=== PATIENT | female | born 1940 | race Caucasian/White ===

== ENCOUNTER → 2023-09-30 09:57 | Outpatient (REF) | payer MEDICARE, SELFPAY ==
[2023-09-30 10:46] LABS: % Basophils 0.7 % (0-2); % Immature Granulocytes 0.3 % (0-0.5); % Lymphocytes 9.8 % (20.5-51.1); % Monocytes 9.4 % (1.7-9.3); % Neutrophils 75.8 % (42.2-75.2); Absolute Basophils 0.1 10^3/uL (0-0.2); Absolute Eosinophils 0.3 10^3/uL (0-0.7); Absolute Lymphocytes 0.8 10^3/uL (1.2-3.4); Absolute Monocytes 0.8 10^3/uL (0.1-0.6); Absolute Neutrophils 6.5 10^3/uL (1.4-6.5); Hematocrit 40.7 % (37.0-47.0); Hemoglobin 13.5 g/dL (12.0-16.0); Mean Corp Hgb Conc. 33.2 g/dL (33.0-37.0); Mean Corpuscular Hgb 30.1 pg (27.0-31.0); Mean Corpuscular Volume 90.6 fL (81.0-99.0); Mean Platelet Volume 10.3 fL (7.4-10.4); Nucleated Red Blood Cells % 0 %; Platelet Count 331 10^3/uL (130-400); Red Blood Cell Count 4.49 10^6/uL (4.20-5.40); Red Cell Dist. Width 13.6 % (11.5-14.5); White Blood Cell Count 8.6 10^3/uL (4.8-10.8)
[2023-09-30 11:23] LABS: Blood Urea Nitrogen 28 mg/dl (7-17); Calcium 9.6 mg/dl (8.4-10.2); Carbon Dioxide 30 mmol/L (22-30); Chloride 101 mmol/L (98-107); Glucose 106 mg/dl (70-99); Potassium 3.9 mmol/L (3.5-5.1); Sodium 137 mmol/L (135-145)
[2023-09-30 11:30] LABS: Erythrocyte Sed Rate 17 mm/hour (0-20)
== END ==
LOC: REG 09:57
PROVIDERS: ATTENDING PHYSICIAN Orthopaedic Surgery; FAMILY PHYSICIAN Internal Medicine; REFERRING PHYSICIAN Internal Medicine Cardiovascular Disease
DX: M19.012 Primary osteoarthritis, left shoulder (principal)
CPT/HCPCS: 36415; 80048; 85025; 85652; 86140

== ENCOUNTER 2023-12-10 14:49 | Emergency (ER) | payer MEDICARE, SELFPAY ==
[2023-12-10 14:53] VITALS: BP 152/66
--- NOTE | 2023-12-10 16:49 | ED.GENMED ---
History of Present Illness
General
Chief Complaint: Fall
Source: patient and spouse
Exam Limitations: none
Time Seen by Provider: 12/10/23 16:16
Nursing documentation reviewed up to this point in time: agreed with
Travel History
Have you had any contact with someone who has COVID-19?: No
Do you have any symptoms of coronavirus? Fever > 100 degrees, chills, cough, shortness of breath, sore throat, loss of taste or smell, muscle aches, or headache?: No
History of Present Illness
History of Present Illness:
83-year-old female with past medical history of dementia seizure history hypertension hyperlipidemia presenting to the emergency department after tripping going up a step with her spouse fell and hit the left side of her forehead no loss of
consciousness otherwise feels well no additional concerns at this time. This was witnessed unsure of her last tetanus shot.
Past History
Past History
ED Past Medical History: HTN, Hypercholesterolemia, Other (TIA) and Other ('80% left carotid blockage' per )
Social History
Tobacco: Former smoker
Personal:
Living: with family
Review of Systems
Review of Systems
Allergies reviewed?: Yes
All Other Systems: ROS reviewed and negative except as documented in HPI and ROS
Phy Exam
Physical Exam
Physical Exam:
GENERAL: Alert , in no apparent distress
EYE: pupils equal and reactive
NECK: Supple, no significant adenopathy.
ENT: 3 cm laceration to the left lateral forehead subcutaneous in depth no foreign body seen o/p clr, mmm.
CARDIAC: Regular rate and rhythm .
LUNGS: Clear breath sounds bilaterally, no acute respiratory distress, no wheezes/rales/rhonchi
ABDOMEN: Soft, without focal tenderness, no r/g, no cvat
NEUROLOGICAL: Alert and oriented, no focal neuro deficits
SKIN: Warm and dry, skin intact.
MUSCULOSKELETAL: No edema, well perfused.
PSYCH: Normal and appropriate interaction.
Course
Orders/Labs/Results
Orders:
Orders
12/10/23 14:[address] [CT Head W/o Iv Contrast] Urgent
Comment:
Reason For Exam: fall, head injury
12/10/23 16:50
Tetanus/Diphth/Acelpertussis [Adacel] 0.5 ml IM .ONCE ONE
Vital Signs
Initial and Last Documented VS:
Initial Vital Signs
Temp Pulse Resp BP Pulse Ox
98.3 F 72 22 152/66 98
12/10/23 14:53 12/10/23 14:53 12/10/23 14:53 12/10/23 14:53 12/10/23 14:53
Last Documented Vital Signs
Temp Pulse Resp BP Pulse Ox
98.3 F 72 22 152/66 98
12/10/23 14:53 12/10/23 14:53 12/10/23 14:53 12/10/23 14:53 12/10/23 14:53
Procedures
Laceration Closure
Left Forehead:
Status of Wound: clean
Size of Wound in cm: 3
Description of Wound Edges: sharp
Preparation: cleaned with saline
Anesthesia: 1% Lidocaine with epi
Revision/Debridement: routine- no revision
Wound exploration: explored to base- no FB and no tendon involvement
Type of Closure: interrupted sutures
Skin Closure Material: 5-0 chromic gut
Number of sutures: 5
MDM/Problems Addressed
MDM/Problems Addressed:
83-year-old female presenting to the emergency department today after a ground-level fall that was mechanical according to . Patient generally well-appearing no acute distress no focal findings on exam other than laceration to the left
lateral forehead 3 cm in length closed with [address] scan without emergent findings stable for discharge return precautions given. She was given an updated tetanus shot while here.
*Critical Care Note
Total Time (30-74mins, 75-104mins- exclusive of procedures): Not Applicable
ED Attending Note
-
Portions of this chart may have been created with voice recognition software.� Occasional wrong word or��sound alike� substitutions may have occurred due to the inherent limitations of voice recognition software.
Discharge Plan
Departure
Patient Disposition: Home (Routine Discharge)
Date of Disposition: 12/10/23
Time of Disposition: 16:50
Patient with high blood pressure during this ER visit?: No
Condition: Good
Covid-19: Not Applicable
Discharge Problem:
Forehead laceration
Instructions: Laceration Repair With Stitches (DC), Preventing falls in adults
Prescriptions:
No Action
atorvastatin 40 MG tablet
40 mg PO HS
clopidogrel 75 MG tablet
75 mg PO HS
aspirin 81 MG tablet,delayed release (DR/EC)
81 mg PO HS
lidocaine 1 PATCH adhesive patch,medicated
1 patch topical DAILYPRN PRN (Reason: right shoulder pain)
ezetimibe 10 MG tablet
10 mg PO HS
cyclosporine [Restasis] 10 DROPS dropperette
1 drp BOTH EYES DAILYPRN PRN (Reason: dry eye)
coenzyme [id number] E 1 CAP capsule
1 cap PO DAILY
fesoterodine [Toviaz] 4 MG tablet extended release 24 hr
4 mg PO DAILY
metoprolol succinate 100 MG tablet extended release 24 hr
100 mg PO DAILY
fenofibrate nanocrystallized 145 MG tablet
145 mg PO DAILY
multivitamin with folic acid [Tab-A-Noe] 1 TABLET tablet
1 tab PO DAILY
vit C,C-Lx-ngfbn-lutein-zeaxan [PreserVision AREDS-2] 1 EACH capsule
1 ea PO DAILY
levetiracetam 500 MG tablet
500 mg PO BID Qty: 60 0RF
phenazopyridine 100 mg tablet
100 mg PO TID PRN (Reason: pain) Qty: 6 0RF
Referrals:
Carolina Sheppard MD [Family Provider] -
Activity Restrictions/Additional Instructions:
You came to the emergency department today with concerns of laceration to your left forehead. You also had a CT scan that did not show any emergent findings. Laceration was closed with 5 absorbable sutures. Please keep the area clean covered and
follow-up for any concerning features. Return to the emergency department for any worsening, new or concerning symptoms.
Interventions
Interventions:
*Risk Screen - Suicide Last Done: 12/10/23 14:53
*General Assessment Last Done: 12/10/23 14:53
*Neglect/Abuse Screening Last Done: 12/10/23 14:53
Discharge Date and Time
Print Language: ARABIC
[2023-12-10] MEDS: ADACEL 0.5 ML IM (17:15)
[2023-12-10 17:36] VITALS: BP 138/76
== END 2023-12-10 17:42 | disposition home or self-care (01) ==
LOC: EMR 14:49
PROVIDERS: EMERGENCY PHYSICIAN Emergency Medicine; FAMILY PHYSICIAN Internal Medicine
DX: S01.81XA Laceration without foreign body of other part of head, initial encounter (principal); W01.0XXA Fall on same level from slipping, tripping and stumbling without subsequent striking against object, initial encounter; Z23 Encounter for immunization; F03.90 Unspecified dementia, unspecified severity, without behavioral disturbance, psychotic disturbance, mood disturbance, and anxiety; I10 Essential (primary) hypertension; E78.00 Pure hypercholesterolemia, unspecified; Z86.73 Personal history of transient ischemic attack (TIA), and cerebral infarction without residual deficits; Z87.891 Personal history of nicotine dependence
CPT/HCPCS: 99284; 12013; 90471; 70450; 90715

== ENCOUNTER → 2024-01-16 11:03 | Outpatient (REF) | payer MEDICARE, SELFPAY | LOC: RAD 11:03 | PROVIDERS: ATTENDING PHYSICIAN Surgery Vascular Surgery; FAMILY PHYSICIAN Internal Medicine | DX: I65.23 Occlusion and stenosis of bilateral carotid arteries (principal) | CPT/HCPCS: 93880 ==

== ENCOUNTER → 2024-03-05 12:47 | Outpatient (REF) | payer MEDICARE, SELFPAY | LOC: HWWDC 12:47 | PROVIDERS: ATTENDING PHYSICIAN Family Medicine | DX: Z12.31 Encounter for screening mammogram for malignant neoplasm of breast (principal) | CPT/HCPCS: 77063; 77067 ==

== ENCOUNTER → 2024-03-06 09:06 | Outpatient (REF) | payer MEDICARE, SELFPAY ==
[2024-03-06 12:32] LABS: HDL Cholesterol 39 mg/dl; LDL Cholesterol, Calculated 53 mg/dl; Total Cholesterol 106 mg/dl (50-199); Triglyceride 73 mg/dl (10-149); Very Low Density Lipoprotein 14 mg/dl (0-30)
== END ==
LOC: HWLAB 09:06
PROVIDERS: ATTENDING PHYSICIAN Family Medicine; REFERRING PHYSICIAN Internal Medicine Cardiovascular Disease
DX: E78.2 Mixed hyperlipidemia (principal)
CPT/HCPCS: 36415; 80061

== ENCOUNTER → 2024-04-06 11:36 | Outpatient (REF) | payer MEDICARE, SELFPAY | LOC: PAVMRI 11:36 | PROVIDERS: ATTENDING PHYSICIAN Psychiatry & Neurology Neurology; FAMILY PHYSICIAN Family Medicine | DX: G45.9 Transient cerebral ischemic attack, unspecified (principal) | CPT/HCPCS: 70544; 70551 ==

== ENCOUNTER → 2024-05-01 08:57 | Outpatient (REF) | payer MEDICARE, SELFPAY ==
[2024-05-01 12:06] LABS: HDL Cholesterol 39 mg/dl; LDL Cholesterol, Calculated 48 mg/dl; Total Cholesterol 102 mg/dl (50-199); Triglyceride 75 mg/dl (10-149); Very Low Density Lipoprotein 15 mg/dl (0-30)
== END ==
LOC: HWLAB 08:57
PROVIDERS: ATTENDING PHYSICIAN Internal Medicine Cardiovascular Disease; FAMILY PHYSICIAN Family Medicine
DX: E78.2 Mixed hyperlipidemia (principal)
CPT/HCPCS: 36415; 80061

== ENCOUNTER 2024-10-16 14:25 | Inpatient (IN) | payer MEDICARE, SELFPAY ==
[2024-10-16] VITALS (7 sets, daily range): BP systolic 119–180; BP diastolic 62–87
[2024-10-16 11:52] LABS: % Basophils 0.3 % (0-2); % Eosinophils 0.1 % (0-6); % Immature Granulocytes 0.4 % (0-0.5); % Lymphocytes 3.2 % (20.5-51.1); Absolute Immature Granulocytes 0.1 10^3/uL (0-0.05); Absolute Lymphocytes 0.4 10^3/uL (1.2-3.4); Absolute Monocytes 0.7 10^3/uL (0.1-0.6); Absolute Neutrophils 12.5 10^3/uL (1.4-6.5); Hematocrit 42.3 % (37.0-47.0); Hemoglobin 14.3 g/dL (12.0-16.0); Mean Corp Hgb Conc. 33.8 g/dL (33.0-37.0); Mean Corpuscular Hgb 30.2 pg (27.0-31.0); Mean Corpuscular Volume 89.2 fL (81.0-99.0); Mean Platelet Volume 10.6 fL (7.4-10.4); Nucleated Red Blood Cells % 0 %; Platelet Count 257 10^3/uL (130-400); Red Blood Cell Count 4.74 10^6/uL (4.20-5.40); Red Cell Dist. Width 13.2 % (11.5-14.5); White Blood Cell Count 13.8 10^3/uL (4.8-10.8)
[2024-10-16 12:05] LABS: COVID-19 Antigen Negative (Negative)
[2024-10-16 12:10] LABS: ALT (SGPT) 55 U/L (0-35); AST (SGOT) 62 U/L (14-36); Albumin 3.7 g/dl (3.5-5.0); Alkaline Phosphatase 48 U/L (38-126); Blood Urea Nitrogen 32 mg/dl (7-17); Calcium 9.3 mg/dl (8.4-10.2); Carbon Dioxide 31 mmol/L (22-30); Chloride 100 mmol/L (98-107); Glucose 139 mg/dl (70-99); Sodium 140 mmol/L (135-145); Total Bilirubin 0.9 mg/dl (0.2-1.3); Total Protein 6.7 g/dl (6.3-8.2); eGFR > 60.00
--- NOTE | 2024-10-16 13:05 | ED.GENMED ---
History of Present Illness
General
Chief Complaint: Cold/Flu/URI Symptoms
Source: patient
Exam Limitations: none
Time Seen by Provider: 10/16/24 12:59
Nursing documentation reviewed up to this point in time: agreed with
History of Present Illness
History of Present Illness:
84-year-old female with past medical history of hypertension, carotid stenosis, vascular dementia, presents emergency department today with concerns of coughing up sputum and change in mental status. Patient's history is somewhat limited due to her
dementia. reports that patient started slurring her words this morning and was so weak that she could barely walk. called EMS from home. Since arrival to emergency department, her mentation has returned to apparent baseline. She
is now febrile. She denies shortness of breath or chest pain. She denies of belly pain. She has no sore throat and notes some difficulty swallowing at times due to the pain. She does have a hx of carotid stenosis and she does get ultrasounds of
her carotid every few months with Dr. Lynch. She denies any paresthesias in her extremities. Her neurologist is Dr. Mccarty and her counter manager is associated with [place] [facility].
Past History
Past History
ED Past Medical History: HTN, Hypercholesterolemia, Other (TIA) and Other ('80% left carotid blockage' per )
Social History
Tobacco: Former smoker
Personal:
Living: with family
Review of Systems
Review of Systems
All Other Systems: ROS reviewed and negative except as documented in HPI and ROS
Phy Exam
Physical Exam
Physical Exam:
General: Patient is well appearing and in no acute distress; non-toxic
Skin: Dry mucous membranes
Head: Normocephalic, atraumatic
Eyes: Sclera non-icteric. EOMs intact.
Cardiac: Regular rate and rhythm, 2+ systolic murmur
Peripheral Vascular: No lower extremity swelling or edema
Pulm: Increased respiratory rate, diffuse rhonchi heard throughout
Abdomen: No abdominal tenderness to palpation
Neuro: CN II-XII intact, no focal neurologic deficits.
Psychiatric: Appropriate mood and affect.
Course
Orders/Labs/Results
Orders:
Orders
10/16/24 11:40
COVID-19 Antigen Urgent
Source: Nasal Swab
Complete Blood Count/With Diff Urgent
Comprehensive Metabolic Panel Urgent
Influenza A+B Rapid Molecular Urgent
ALEX Source: Nasal Swab
Specimen Description:
10/16/24 12:46
CR Chest - 2 Views Urgent
Comment:
Reason For Exam: cough
10/16/24 13:14
EKG [Electrocardiogram (*1)] Urgent
Reason for Study: Fatigue / Weakness
EKG- Treatment ONCE
10/16/24 13:15
Lactic Acid Urgent
Prothrombin Time Urgent
Urinalysis Reflex To Culture Urgent
Date Specimen was Collected: 10/16/24
Time Specimen was Collected: 13:14
Urine Microscopic Reflex Cult Urgent
Blood Culture Routine
ALEX Source: Blood/Venous
Specimen Description:
Blood Culture Urgent
ALEX Source: Blood/Venous
Specimen Description:
10/16/24 13:16
0.9% Sodium Chloride 500 ml [Nss] 500 ml IV BOLUS
10/16/24 13:20
Acetaminophen 1000MG/100Ml [Ofirmev] 1,000 mg in 100 ml IV ONCE
Acetaminophen IV Indication:: Targeted Temp Management
10/16/24 13:29
Case Management Consult ONCE
Case Management Consult: VN/Home Care
10/16/24 13:47
Azithromycin 500 mg/250 ml [Zithromax Infusion] 500 mg in 250 ml IV NOW
CefTRIAXone [Rocephin] 2,000 mg IV NOW STA
10/16/24 14:14
Admit/Transfer Patient As Directed
Co-Sign Provider:
Level of Care: Inpatient admission
Assign to:: Medical/Surgical
Physician / Group: Htay
Diagnosis: Pneumonia
Reason for Hospitalization: IV abx
Expected length of stay greater than two midnights?: Yes
ELOS- Estimated Length of Stay in days: 3
I certify the patient meets the requirements for IP care: Yes
PRN Pain Medication Management As Directed
May give lesser potent ordered pain med per pt: Yes
preference::
Protocol:: Medication orders for pain may be administered in a
manner that supports deferring to patient preference
when the pt is:
- Requesting an ordered lesser potent pain medication.
Least to most potent pain medications are defined
as: acetaminophen < NSAID < tramadol < opioids
(morphine, oxycodone, hydromorphone).
- Requesting a lesser dose of the same medication IF
ORDERED.
- Requesting a less intrusive route of administration
if both routes are prescribed by the provider (PO <
IV).
10/16/24 14:16
Code Status As Directed
Resuscitation Status: Do not resuscitate
Reached after discussion with pt or family/Healthcare POA: Yes
DNR Bracelet Application ONCE
Abnormal Lab Results
10/16/24 10/16/24
11:40 13:15
WBC 13.8 H 10^3/uL
(4.8-10.8)
MPV 10.6 H fL
(7.4-10.4)
Abs Immat Gran (auto) 0.1 H 10^3/uL
(0-0.05)
Absolute Neuts (auto) 12.5 H 10^3/uL
(1.4-6.5)
Absolute Lymphs (auto) 0.4 L 10^3/uL
(1.2-3.4)
Absolute Monos (auto) 0.7 H 10^3/uL
(0.1-0.6)
Neutrophils % 91.0 H %
(42.2-75.2)
Lymphocytes % 3.2 L %
(20.5-51.1)
PT 15.7 H Sec
(11.4-14.6)
Carbon Dioxide 31 H mmol/L
(22-30)
BUN 32 H mg/dl
(7-17)
Glucose 139 H mg/dl
(70-99)
AST 62 H U/L
(14-36)
ALT 55 H U/L
(0-35)
Urine Bacteria (Reflex) Few A
(Negative)
Urine Albumin (Reflex) 3+ A
(Neg - Trace)
10/16/24 11:40
10/16/24 11:40
Vital Signs
Initial and Last Documented VS:
Initial Vital Signs
Temp Pulse Resp BP Pulse Ox
98.5 F 90 16 133/87 93
10/16/24 11:05 10/16/24 11:05 10/16/24 11:05 10/16/24 11:05 10/16/24 11:05
Last Documented Vital Signs
Temp Pulse Resp BP Pulse Ox
99.2 F 71 22 124/66 92
10/16/24 15:44 10/16/24 15:30 10/16/24 15:30 10/16/24 15:00 10/16/24 13:45
MDM/Problems Addressed
Differential Diagnosis Includes:
ddx include COPD exacerbation, pneumonia, acute bronchitis, strep pharyngitis, viral pharyngitis,
MDM/Problems Addressed:
84-year-old female with past medical history of dementia hypertension hyperlipidemia presents emergency department today with concerns of productive cough, sore throat, and altered mental status. On arrival to emergency department, she is found to
be febrile. She is elevated white count as well. She has diffuse rhonchi heard on exam. She went for chest x-ray which showed possible right-sided pneumonia versus emphysematous changes. In light of patient's symptoms and febrile illness, will
start on IV antibiotics. Case reviewed by attending. Referred to hospitalist for admission. Suspect transient altered mental status in the setting of dementia caused by acute febrile illness.
Chronic conditions affecting care:
COPD, dementia, HTN, HLP,
*Pulse Oximetry
Patient hypoxic: no
*Critical Care Note
Total Time (30-74mins, 75-104mins- exclusive of procedures): Not Applicable
Data Reviewed
Review of Other/Old Records Reveals: Records and Discharge Summary (reviewed discharge summary from 06/06/19 patient seen for CVA from left carotid stenosis )
ED Attending Note
-
Portions of this chart may have been created with voice recognition software.� Occasional wrong word or��sound alike� substitutions may have occurred due to the inherent limitations of voice recognition software.
Discharge Plan
Departure
Patient Disposition: Admit
Date of Disposition: 10/16/24
Time of Disposition: 13:55
Admit to: Med/Surg
Presentation/result/management discussed w/ accepting MD/DO: Hospitalist
Patient with high blood pressure during this ER visit?: Yes
Condition: Fair
Discharge Problem:
Community acquired pneumonia
Interventions
Interventions:
*Risk Screen - Suicide Last Done: 10/16/24 11:07
*General Assessment Last Done: 10/16/24 13:30
*Neglect/Abuse Screening Last Done: 10/16/24 11:07
*ED COVID-19 Vaccine History Last Done: 10/16/24 13:30
ED- Pulmonary Assessment Last Done: 10/16/24 13:30
[2024-10-16] MEDS: NSS 500 IV (13:17)
[2024-10-16 13:41] LABS: Urine Albumin 3+ (Neg - Trace); Urine Bilirubin Negative (Negative); Urine Character Clear (Clear); Urine Color Yellow; Urine Glucose Negative (Negative); Urine Ketone Negative (Negative); Urine Leukocyte Negative (Negative); Urine Nitrite Negative (Negative); Urine Occult Blood Negative (Negative); Urine Urobilinogen 1+ (Neg - 1+)
[2024-10-16] MEDS: OFIRMEV 100 IV (13:41)
[2024-10-16 13:49] LABS: Urine Bacteria Few (Negative); Urine Red Blood Cell 0-2 /HPF (0-2); Urine White Cell 0-2 /HPF (0-5)
--- NOTE | 2024-10-16 13:51 | CM ---
CM was consulted VN. As per ED PA, plan for admission.
--- NOTE | 2024-10-16 13:57 | HPS.HSE ---
Family Physician
-
Family Physician: Edward James DO
Chief Complaint
-
Cough, Weakness and Confusion
History of Present Illness
Patient is an 84 y/o female past medical history of peripheral arterial disease, hypertension, vascular dementia and seizure disorder who presents with cough, weakness and confusion. Additional history is obtained from patient's at the
bedside. This morning patient was very weak and he needed to help her to the bathroom. He notes she was more confused than usual. reports patient has had a cough for the past few days which is occasionally productive of mucus. Upon
arrival to the ED today patient was found to be febrile.
Medical History
Past Medical History
Past Medical History: Reports Other
Additional Past Medical History:
Peripheral Arterial Disease s/p Left Carotid Endarterectomy
Essential Hypertension
Hyperlipidemia
Vascular Dementia
Seizure Disorder
Overactive Bladder
Past Surgical History: Reports Other
Additional Past Surgical History:
Left Carotid Endarterectomy
Bilateral Shoulder Replacement
Bilateral Knee Replacement
Social History
Tobacco: Former Smoker (Patient was an occasional smoker and quit over 20 years ago. notes he was a heavy smoker.)
Personal:
Living: With Family
Family History
Family History: Unable to Obtain
Allergies / Home Medications
Allergies reflects when Allergies were last updated in [facility].
Home Medications with original date entered in [facility]
Allergy/Medication List:
Allergies
Allergy/AdvReac Type Severity Reaction Status Date / Time
Sulfa (Sulfonamide Allergy Rash Verified 12/10/23 14:52
Antibiotics)
Home Medications
aspirin 81 mg tablet,delayed release 81 mg PO HS 03/12/19
atorvastatin 40 mg tablet 40 mg PO HS 03/12/19
ezetimibe 10 mg tablet 10 mg PO HS 03/12/19
fenofibrate nanocrystallized 145 mg tablet 145 mg PO DAILY 03/12/19
fesoterodine 4 mg tablet,extended release 24 hr (Toviaz) 4 mg PO DAILY 03/12/19
metoprolol succinate 100 mg tablet,extended release 24 hr 100 mg PO DAILY 03/12/19
multivitamin with folic acid 400 mcg tablet (Tab-A-Noe) 1 tab PO DAILY 03/12/19
vit C 250 mg-vit E 90 mg-zinc 40 mg-copper 1 io-uebout-kegfym capsule (PreserVision AREDS-2) 1 ea PO QPM 03/12/19
coQ10 (ubiquinol) 100 mg capsule 100 mg PO QPM 10/16/24
lacosamide 150 mg tablet (Vimpat) 150 mg PO BID 10/16/24
memantine 10 mg tablet 10 mg PO BID 10/16/24
peg 400-propylene glycol (PF) 0.4 %-0.3 % eye drops in a dropperette (Systane (PF)) 1 drp BOTH EYES BIDPRN PRN DRY EYES 10/16/24
Review of Systems
-
Unable to obtain full review of systems at this time due to: Dementia
Physical Exam
Vital Signs
Vital Signs
Temp Pulse Resp BP Pulse Ox
101.2 F H 91 23 180/70 94
10/16/24 13:12 10/16/24 13:15 10/16/24 13:15 10/16/24 13:10 10/16/24 13:15
Physical Exam
General: Comfortable and Conversant
HEENT: NormoCephalic, Anicteric, Atraumatic and Other
Respiratory: Wheezes, Rales and Non Labored Respirations
Cardiac: S1/S2, Regular Rhythm and Murmur; No Tachycardia
GI: Soft and Non Tender
Rectal: Deferred by Provider
Musculoskeletal: No Clubbing, No Cyanosis and No Edema
Skin: Warm and Dry
Neuro: Awake, Alert and No Motor Deficits
Psych: Calm
Laboratory Results
-
10/16/24 11:40
10/16/24 11:40
Laboratory Results
Total Bilirubin 0.9 mg/dl (0.2-1.3) 10/16/24 11:40
AST 62 U/L (14-36) H 10/16/24 11:40
ALT 55 U/L (0-35) H 10/16/24 11:40
Alkaline Phosphatase 48 U/L (38-126) 10/16/24 11:40
Data Reviewed
-
Diagnostic Radiology: Report Reviewed by me
Lab Data: Labs Reviewed by me
Impression/Plan
-
Sepsis secondary to Pneumonia
-Continue ceftriaxone and azithromycin
-Continue Mucinex
-Add DuoNeb given wheezing on exam
Peripheral Arterial Disease s/p Left Carotid Endarterectomy
-Continue aspirin
Essential Hypertension
-Continue Metoprolol with hold parameters
Hyperlipidemia
-Continue atorvastatin, ezetimibe, and fenofibrate
Vascular Dementia
-Continue Namenda
-Monitor for mood/behavior changes during hospitalization
Seizure Disorder
-Continue Vimpat
DVT proph: Lovenox
Code Status: DNR
[2024-10-16 14:24] LABS: Lactic Acid 1.3 mmol/L (0.7-2.0)
[2024-10-16] MEDS: ROCEPHIN 2000 MG IV (14:32)
--- NOTE | 2024-10-16 14:46 | W.PN.UPDATE ---
Update Note
Progress Note Update
This note serves as an addendum to the H&P by serologist ANDREEA
Narcisa MCINTOSH
I saw and examined the patient.
The CLAY TRANSPORTER or PA's note was reviewed and I agree with the note.
Comment:
HPI
84F HX vascular dementia, PAD, HTN and seizure disorder evaluating for cough, weakness and confusion. Upon arrival to the ED today patient was found to be febrile.
VS
10/16/24
13:12 10/16/24
13:15 10/16/24
13:30
Temp 101.2 F H
Pulse 91
Resp Rate 23
SaO2 94
Oxygen Mode of Delivery Room air
Laboratory Tests
10/16/24
11:40
WBC 13.8 H
Carbon Dioxide 31 H
BUN 32 H
Creatinine 0.7
eGFR > 60.00
SARS-CoV-2 Antigen Negative
CXR:
There is patchy airspace disease in the right upper lobe which is new from 2019 but has a pattern suggesting chronic emphysematous changes. Pneumonia cannot be excluded.
Small nodules could be granulomas, however follow-up with CT of the chest would be recommended
ASSESSMENT & PLAN
Sepsis due to PNA @ [facility]
- agree with ceftriaxone and azithromycin
- Continue Mucinex
- Add DuoNeb given wheezing on exam
Peripheral Arterial Disease s/p Left Carotid Endarterectomy
- Continue aspirin
Essential Hypertension
- Continue Metoprolol with hold parameters
Hyperlipidemia
- Continue atorvastatin, ezetimibe, and fenofibrate
Vascular Dementia
- Continue Namenda
- Monitor for mood/behavior changes during hospitalization
Seizure Disorder
-Continue Vimpat
DVT proph: Lovenox
Code: DNR
IP MS
[2024-10-16 15:05] LABS: INR 1.22; PT 15.7 Sec (11.4-14.6)
[2024-10-16] MEDS: ZITHROMAX INFUSION 250 IV (15:32)
[2024-10-16] MEDS: DUONEB INH (17:17)
[2024-10-16] MEDS: OCUVITE SOFTGEL 1 CAP PO (17:45)
[2024-10-16] MEDS: LOVENOX 40 MG SC (17:45)
--- NOTE | 2024-10-16 18:11 | PTOTSP ---
ST Acute Care Evaluation
Pt currently presents with an oropharyngeal swallow that is generally within functional limits. Pt would benefit from a brief follow-up from COURT RECORDING MONITOR team to ensure this remains the case given the pt's age, medical hx, and acute illness.
Recommendations:
- Continue with regular solids, thin liquids, meds as tolerated.
- General aspiration precautions; denture adhesive for upper dentures.
- COURT RECORDING MONITOR to f/u re: to ensure pt is tolerating diet without any overt s/s of penetration/aspiration at bedside and to determine if pt would benefit from an instrumental swallow study.
[2024-10-16] MEDS: DUONEB 3 ML INH (19:30)
[2024-10-16] MEDS: VIMPAT 150 MG PO (19:52)
[2024-10-16] MEDS: MUCINEX 600 MG PO (19:52)
[2024-10-16] MEDS: NAMENDA 10 MG PO (19:52)
[2024-10-16] MEDS: ZETIA 10 MG PO (21:07)
[2024-10-16] MEDS: LIPITOR 40 MG PO (21:07)
[2024-10-16] MEDS: ASPIR LOW (ENTERIC COATED) 81 MG PO (21:07)
[2024-10-16] MEDS: TYLENOL 650 MG PO (22:47)
[2024-10-17 05:21] VITALS: BMI 23.7
[2024-10-17 07:23] VITALS: BP 130/71
[2024-10-17] MEDS: TOPROL XL 100 MG PO (07:51)
[2024-10-17] MEDS: VIMPAT 150 MG PO ×2 (07:51→19:32)
[2024-10-17] MEDS: TRICOR 48 MG PO (07:51)
[2024-10-17] MEDS: NAMENDA 10 MG PO ×2 (07:51→19:32)
[2024-10-17] MEDS: MUCINEX 600 MG PO ×2 (07:51→19:32)
[2024-10-17] MEDS: TYLENOL 650 MG PO (07:52)
[2024-10-17] MEDS: DUONEB 3 ML INH ×4 (08:10→20:15)
[2024-10-17 08:49] LABS: Hematocrit 36.1 % (37.0-47.0); Hemoglobin 12.2 g/dL (12.0-16.0); Mean Corp Hgb Conc. 33.8 g/dL (33.0-37.0); Mean Corpuscular Hgb 29.6 pg (27.0-31.0); Mean Corpuscular Volume 87.6 fL (81.0-99.0); Mean Platelet Volume 10.6 fL (7.4-10.4); Platelet Count 210 10^3/uL (130-400); Red Blood Cell Count 4.12 10^6/uL (4.20-5.40); Red Cell Dist. Width 13.5 % (11.5-14.5); White Blood Cell Count 14.1 10^3/uL (4.8-10.8)
[2024-10-17 09:09] LABS: Blood Urea Nitrogen 29 mg/dl (7-17); Calcium 8.6 mg/dl (8.4-10.2); Carbon Dioxide 28 mmol/L (22-30); Chloride 99 mmol/L (98-107); Estimated Creatinine Clearance 42 ml/min; Glucose 106 mg/dl (70-99); Potassium 3.3 mmol/L (3.5-5.1); Sodium 138 mmol/L (135-145); eGFR > 60.00
[2024-10-17 09:20] VITALS: BP 136/73; O2SAT 93
--- NOTE | 2024-10-17 09:34 | W.PN.HOSP.TC ---
Today's Communication/Plan
-
Urine for Legionella and streptococcal pneumonia
Replace K
Assessment / Plan
Assessment / Plan
Physical Exam
General: Comfortable and Conversant
HEENT: Normocephalic, Anicteric, Atraumatic and Other
Respiratory: no Wheezes, basal rales, non Labored Respirations
Cardiac: S1/S2, Regular Rhythm and Murmur; No Tachycardia
GI: Soft and Non Tender
Rectal: no rectal bleeding.
Musculoskeletal: No Clubbing, No Cyanosis and No Edema
Skin: Warm and Dry
Neuro: Awake, Alert, oriented to self and surroundings, forgetful, no Motor Deficits
Psych: Calm
# She presented with tachycardia, fever and leukocytosis, patient is not very good historian
She met the criteria of sepsis, POA for possible community-acquired pneumonia
Negative influenza and COVID screen.
Await blood culture
Check urine for Legionella
-Continue ceftriaxone and azithromycin
-Continue Mucinex
-Add DuoNeb given wheezing on exam
# hypokalemia
replace
# Peripheral Arterial Disease s/p Left Carotid Endarterectomy
-Continue aspirin
# Essential Hypertension
-Continue Metoprolol with hold parameters
# Hyperlipidemia
-Continue atorvastatin, ezetimibe, and fenofibrate
# Vascular Dementia
-Continue Namenda
-Monitor for mood/behavior changes during hospitalization
# Seizure Disorder
-Continue Vimpat
DVT proph: Lovenox
Code Status: DNR
Total time spent to see the patient, examine the patient, review data and lab results, discuss treatment plan with patient and nursing staff around 55 minutes
Anticipated Discharge: 24 - 48 hours
Subjective/Interval History
-
Date of Service: October 17, 2024
Objective Data
-
Labs:
Laboratory Results
10/17/24
08:05
WBC 14.1 H
Hgb 12.2
Hct 36.1 L
Plt Count 210
Sodium 138
Potassium 3.3 L
Chloride 99
Carbon Dioxide 28
BUN 29 H
Creatinine 0.8
Glucose 106 H
Calcium 8.6
Vital Signs:
Vital Signs
Temp Pulse Resp BP Pulse Ox
99.0 F 84 20 130/71 93
10/17/24 07:23 10/17/24 07:51 10/17/24 07:23 10/17/24 07:51 10/17/24 07:23
I&O
10/16/24 10/17/24 10/18/24
06:59 06:59 06:59
Intake Total 600 / 600
Balance 600 / 600
[2024-10-17 10:04] VITALS: BP 136/57; PULSE 74; O2SAT 93
[2024-10-17] MEDS: KCL 20 MEQ PO (10:22)
[2024-10-17 15:38] VITALS: BP 138/70
[2024-10-17] MEDS: NON-FORMULARY ITEM 1 UNIT PO (15:52)
[2024-10-17] MEDS: ZITHROMAX 500 MG PO (15:53)
--- NOTE | 2024-10-17 16:17 | CM ---
general operations manager reviewed patient's chart and met with patient and spouse at bedside, patient lives with her spouse in a 1st floor of one story home, patient is independent with adl's and ambulation, no dme, plan is to home with VN, case packer spoke
with [employer] about options and patient has selected [facility], [facility] liaison is aware.
Plan; Home with spouse and [facility].
[2024-10-17] MEDS: ROCEPHIN 1000 MG IV (17:07)
[2024-10-17] MEDS: STERILE WATER FOR INJECTION 10 ML IV (17:08)
[2024-10-17] MEDS: OCUVITE SOFTGEL 1 CAP PO (18:17)
[2024-10-17] MEDS: LOVENOX 40 MG SC (18:17)
[2024-10-17] MEDS: ZETIA 10 MG PO (20:35)
[2024-10-17] MEDS: LIPITOR 40 MG PO (20:35)
[2024-10-17] MEDS: ASPIR LOW (ENTERIC COATED) 81 MG PO (20:35)
--- NOTE | 2024-10-17 21:45 | PTCARENOTE ---
Patient made multiple attempts to get OOB and no longer at bedside. Hx dementia at baseline [employer]. Attempted to call to calm patient, patient unable to redirect at this time. spoke with RN and stated patient needs something
to be 'sedated'. MARKETING ASSOCIATE notified, order placed for 25mg PO seroquel, see MAR for administration. Placed in nursing station for safety with chair alarm in place. Care ongoing.
[2024-10-17] MEDS: SEROQUEL 25 MG PO (21:50)
[2024-10-17 23:11] VITALS: BP 145/80
[2024-10-18 05:26] VITALS: BMI 24.4
[2024-10-18 07:20] VITALS: BP 139/59
[2024-10-18] MEDS: DUONEB 3 ML INH ×2 (07:33→11:24)
[2024-10-18] MEDS: MUCINEX 600 MG PO (07:56)
[2024-10-18] MEDS: VIMPAT 150 MG PO (07:56)
[2024-10-18] MEDS: TOPROL XL 100 MG PO (07:56)
[2024-10-18] MEDS: TRICOR 48 MG PO (07:56)
[2024-10-18] MEDS: NAMENDA 10 MG PO (07:56)
[2024-10-18] MEDS: NON-FORMULARY ITEM 1 UNIT PO (07:59)
[2024-10-18 08:06] LABS: Hematocrit 33.4 % (37.0-47.0); Hemoglobin 11.5 g/dL (12.0-16.0); Mean Corp Hgb Conc. 34.4 g/dL (33.0-37.0); Mean Corpuscular Hgb 29.6 pg (27.0-31.0); Mean Corpuscular Volume 85.9 fL (81.0-99.0); Mean Platelet Volume 10.5 fL (7.4-10.4); Platelet Count 191 10^3/uL (130-400); Red Blood Cell Count 3.89 10^6/uL (4.20-5.40); Red Cell Dist. Width 13.4 % (11.5-14.5)
[2024-10-18 08:56] LABS: ALT (SGPT) 48 U/L (0-35); AST (SGOT) 60 U/L (14-36); Albumin 2.8 g/dl (3.5-5.0); Alkaline Phosphatase 49 U/L (38-126); Blood Urea Nitrogen 26 mg/dl (7-17); Calcium 8.7 mg/dl (8.4-10.2); Carbon Dioxide 27 mmol/L (22-30); Chloride 101 mmol/L (98-107); Estimated Creatinine Clearance 42 ml/min; Glucose 87 mg/dl (70-99); Potassium 3.3 mmol/L (3.5-5.1); Sodium 135 mmol/L (135-145); Total Bilirubin 0.6 mg/dl (0.2-1.3); Total Protein 5.4 g/dl (6.3-8.2); eGFR > 60.00
--- NOTE | 2024-10-18 09:20 | VNURNOTE ---
Home Health Liaison spoke with patient's spouse Ed to discuss [facility] nurse/therapy, visits, schedule and homebound status. He is agreeable and understands that visits at home will be 2-3 x per week to assess and teach medical management. He would
also like [facility] and [facility] mendoza, will add to referral. [facility] contact information provided to spouse. He is aware that [facility] will contact him for start of care within a few days after discharge from . [facility] referral completed in [facility].
[2024-10-18 10:07] VITALS: BP 137/89; O2SAT 97
--- NOTE | 2024-10-18 10:17 | PN.CDI ---
Addendum entered and electronically signed by Karen Acevedo MD 10/18/24 11:35:
Call me at [phone] to discuss
Original Note:
CDI
- -
CDI:
Physician Documentation Request
Admit Date: 10/16/24 14:25
Dear Doctor Curtis,
Please review the following and provide your response in the progress notes.
Clinical Indicators:
PN, 3/
#....Urine for Legionella and streptococcal pneumonia
#...presented with tachycardia, fever and leukocytosis, ...
#...met the criteria of sepsis, POA for possible community-acquired pneumonia
#...-Continue ceftriaxone and azithromycin
Based on the above and your clinical assessment, please clarify the likely specificity/etiology of the pneumonia?
Legionella pneumonia
Streptococcal Pneumonia - indicate if strep B, strep pneumoniae or other type
Other (please specify)
Use of terms such as suspected, likely, concern for, or probable (associated with a specific diagnosis that is being evaluated, monitored, or treated as if it exists) are acceptable and can be coded in the inpatient setting, when documented at the
time of discharge.
Thank you,
Jaimee Almanza RN BSN CCDS
CDI Specialist
please contact via tiger text
Please use your independent medical judgment in providing your response.
--- NOTE | 2024-10-18 11:06 | CM ---
Chart reviewed and plan is to home with [facility] when stable.
Plan; Home with [facility]
--- NOTE | 2024-10-18 11:27 | W.PN.HOSP.TC ---
Today's Communication/Plan
-
dc
Assessment / Plan
Assessment / Plan
Physical Exam
General: Comfortable and Conversant
HEENT: Normocephalic, Anicteric, Atraumatic and Other
Respiratory: no Wheezes, basal rales, non Labored Respirations
Cardiac: S1/S2, Regular Rhythm and Murmur; No Tachycardia
GI: Soft and Non Tender
Rectal: no rectal bleeding.
Musculoskeletal: No Clubbing, No Cyanosis and No Edema
Skin: Warm and Dry
Neuro: Awake, Alert, oriented to self and surroundings, forgetful, no Motor Deficits
Psych: Calm
# She presented with tachycardia, fever and leukocytosis, patient is not very good historian
She met the criteria of sepsis, POA for possible community-acquired pneumonia
Negative influenza and COVID screen.
Negative blood culture
Repeat chest x ray showed Mild opacification in the lateral mid right lung field concerning for pneumonia
Negative Legionella & Streptococcus pneumoniae
-s/p ceftriaxone and azithromycin
-Continue Mucinex
# hypokalemia
replaced
# Peripheral Arterial Disease s/p Left Carotid Endarterectomy
-Continue aspirin
# Essential Hypertension
-Continue Metoprolol with hold parameters
# Hyperlipidemia
-Continue atorvastatin, ezetimibe, and fenofibrate
# Vascular Dementia
-Continue Namenda
-Monitor for mood/behavior changes during hospitalization
# Seizure Disorder
-Continue Vimpat
DVT proph: Lovenox
Code Status: DNR
Total dc time spent to see the patient, examine the patient, review data and lab results, discuss discharge plan with patient and nursing staff around 65 minutes
Anticipated Discharge: Today
Subjective/Interval History
-
Date of Service: October 18, 2024
Doing well
No sob
No chest pain
Objective Data
-
Labs:
Laboratory Results
10/18/24
07:30
WBC 8.0
Hgb 11.5 L
Hct 33.4 L
Plt Count 191
Sodium 135
Potassium 3.3 L
Chloride 101
Carbon Dioxide 27
BUN 26 H
Creatinine 0.8
Glucose 87
Calcium 8.7
Total Bilirubin 0.6
AST 60 H
ALT 48 H
Alkaline Phosphatase 49
Vital Signs:
Vital Signs
Temp Pulse Resp BP Pulse Ox
97.8 F 70 16 139/59 93
10/18/24 07:20 10/18/24 07:56 10/18/24 07:36 10/18/24 07:56 10/18/24 07:36
I&O
10/17/24 10/18/24 10/19/24
06:59 06:59 06:59
Intake Total 600 / 600 680 / 680
Balance 600 / 600 680 / 680
[2024-10-18 11:45] LABS: Glucose - Point of Care 103 mg/dl (70-99)
[2024-10-18] MEDS: KCL 40 MEQ PO (12:14)
[2024-10-18] MEDS: ROCEPHIN 1000 MG IV (12:16)
[2024-10-18] MEDS: STERILE WATER FOR INJECTION 10 ML IV (12:17)
[2024-10-18 12:39] VITALS: BP 116/66
--- NOTE | 2024-10-18 13:00 | PTCARENOTE ---
patient was discharged at this time. home medication (toviaz) was returned to family
--- NOTE | 2024-10-19 14:26 | W.DCSUMMARY ---
Discharge Summary
Discharge Data
Date of Admission: 10/16/24
Date of Discharge: 10/18/24
-
Pending Results: No
Hospital Course
84 years old female presented with cough, weakness and confusion. reported patient had a cough for the past few days. Upon arrival to the ED today patient was found to have fever, tachycardia and leukocytosis. Patient met the criteria of
sepsis, mild. She was diagnosed with community-acquired pneumonia. She had negative blood culture. Negative influenza, COVID, Legionella and Streptococcus pneumoniae antigen. patient received intravenous antibiotics. Leukocytosis resolved. She
did not have cough or hypoxia. Patient had mild hypokalemia was treated. Patient had history of vascular dementia. She did not have significant agitation. She remained hemodynamically stable was discharged in a stable condition.
Discharge Plan
-
Patient Disposition: Home with Home Care
Discharge Diagnosis/Procedures: Community-acquired pneumonia, you received antibiotics
Negative blood culture, negative Legionella and Streptococcus pneumoniae antigens
Negative COVID and influenza
You will need to follow-up with your primary care doctor to repeat chest x-ray in 2-3 weeks
Condition: Good
Diet: As tolerated
Referrals:
Edward James DO [Family Provider] -
Prescriptions:
New
amoxicillin-pot clavulanate 875-125 mg tablet
1 tab PO BID Qty: 10 0RF
Continued
atorvastatin 40 MG tablet
40 mg PO HS
aspirin 81 MG tablet,delayed release (DR/EC)
81 mg PO HS
ezetimibe 10 MG tablet
10 mg PO HS
fesoterodine [Toviaz] 4 MG tablet extended release 24 hr
4 mg PO DAILY
metoprolol succinate 100 MG tablet extended release 24 hr
100 mg PO DAILY
fenofibrate nanocrystallized 145 MG tablet
145 mg PO DAILY
multivitamin with folic acid [Tab-A-Noe] 1 TABLET tablet
1 tab PO DAILY
PreserVision AREDS-2 1 EACH capsule
1 ea PO QPM
memantine 10 mg Tablet
10 mg PO BID
Systane (PF) 0.4-0.3 % Dropperette
1 drp BOTH EYES BIDPRN PRN (Reason: DRY EYES)
lacosamide [Vimpat] 150 mg Tablet
150 mg PO BID
coQ10 (ubiquinol) 100 mg Capsule
100 mg PO QPM
Discharge Orders:
Discharge Patient (As Directed); Ordered 10/18/24
Ordered By: Karen Acevedo
Discharge Date and Time
Discharge Date/Time: 10/18/24 12:50
Print Language: MOHAWK
== END 2024-10-18 12:50 | disposition home health service (06) | DRG 871 ==
LOC: 4 WEST ACU 14:25
PROVIDERS: Emergency Medicine; Physician Assistant; Physician Assistant Medical; ADMITTING PHYSICIAN Internal Medicine; ATTENDING PHYSICIAN Internal Medicine; EMERGENCY PHYSICIAN Emergency Medicine; FAMILY PHYSICIAN Family Medicine
DX: A41.9 Sepsis, unspecified organism (principal); J18.9 Pneumonia, unspecified organism; E87.6 Hypokalemia; I73.9 Peripheral vascular disease, unspecified; I10 Essential (primary) hypertension; E78.00 Pure hypercholesterolemia, unspecified; F01.50 Vascular dementia, unspecified severity, without behavioral disturbance, psychotic disturbance, mood disturbance, and anxiety; G40.909 Epilepsy, unspecified, not intractable, without status epilepticus; Z66 Do not resuscitate; Z96.611 Presence of right artificial shoulder joint; Z96.612 Presence of left artificial shoulder joint; Z96.653 Presence of artificial knee joint, bilateral; Z87.891 Personal history of nicotine dependence; Z88.2 Allergy status to sulfonamides; Z79.82 Long term (current) use of aspirin; Z86.73 Personal history of transient ischemic attack (TIA), and cerebral infarction without residual deficits; N32.81 Overactive bladder; Z11.52 Encounter for screening for COVID-19
CPT/HCPCS: 71046; 80048; 80053; 81003; 81015; 82962; 83605; 85025; 85027; 85610; 87040; 87449; 87502; 87811; 87899; 92526; 92610; 93005; 94640; 96361; 96374; 97162; 97166; 97530; 99285

== ENCOUNTER → 2024-10-26 09:10 | Outpatient (REF) | payer MEDICARE, SELFPAY ==
[2024-10-26 13:02] LABS: % Basophils 0.8 % (0-2); % Eosinophils 1.9 % (0-6); % Immature Granulocytes 1.2 % (0-0.5); % Lymphocytes 15.2 % (20.5-51.1); % Monocytes 10.1 % (1.7-9.3); % Neutrophils 70.8 % (42.2-75.2); Absolute Basophils 0.1 10^3/uL (0-0.2); Absolute Eosinophils 0.1 10^3/uL (0-0.7); Absolute Immature Granulocytes 0.1 10^3/uL (0-0.05); Absolute Lymphocytes 1.1 10^3/uL (1.2-3.4); Absolute Monocytes 0.8 10^3/uL (0.1-0.6); Absolute Neutrophils 5.3 10^3/uL (1.4-6.5); Hematocrit 41.2 % (37.0-47.0); Hemoglobin 13.6 g/dL (12.0-16.0); Mean Corpuscular Volume 90.9 fL (81.0-99.0); Mean Platelet Volume 10.7 fL (7.4-10.4); Nucleated Red Blood Cells % 0 %; Platelet Count 451 10^3/uL (130-400); Red Blood Cell Count 4.53 10^6/uL (4.20-5.40); White Blood Cell Count 7.4 10^3/uL (4.8-10.8)
[2024-10-26 13:20] LABS: Urine Albumin 2+ (Neg - Trace); Urine Bilirubin Negative (Negative); Urine Character Clear (Clear); Urine Color Yellow; Urine Glucose Negative (Negative); Urine Ketone Negative (Negative); Urine Leukocyte Negative (Negative); Urine Nitrite Negative (Negative); Urine Occult Blood Negative (Negative); Urine Specific Gravity 1.015 (<1.030); Urine Urobilinogen Negative (Neg - 1+)
[2024-10-26 13:30] LABS: Glycohemoglobin (HgbA1c) 5.7 % (4.0-5.6)
[2024-10-26 13:31] LABS: ALT (SGPT) 32 U/L (0-35); AST (SGOT) 27 U/L (14-36); Albumin 3.5 g/dl (3.5-5.0); Alkaline Phosphatase 49 U/L (38-126); Blood Urea Nitrogen 30 mg/dl (7-17); Calcium 9.7 mg/dl (8.4-10.2); Carbon Dioxide 31 mmol/L (22-30); Chloride 102 mmol/L (98-107); Glucose 94 mg/dl (70-99); HDL Cholesterol 28 mg/dl; LDL Cholesterol, Calculated 41 mg/dl; Magnesium 1.8 mg/dl (1.6-2.3); Potassium 4.8 mmol/L (3.5-5.1); Sodium 139 mmol/L (135-145); Total Bilirubin 0.8 mg/dl (0.2-1.3); Total Cholesterol 94 mg/dl (50-199); Total Protein 6.4 g/dl (6.3-8.2); Triglyceride 126 mg/dl (10-149); Very Low Density Lipoprotein 25 mg/dl (0-30); eGFR > 60.00
[2024-10-26 13:51] LABS: TSH Reflex To Free T4 3.63 uIU/ml (0.47-4.68)
[2024-10-26 14:16] LABS: Urine Mucus Few
[2024-10-26 14:18] LABS: Urine Amorphous Seen; Urine Red Blood Cell 0-2 /HPF (0-2); Urine White Cell 0-2 /HPF (0-5)
[2024-10-26 14:32] LABS: Microalbumin, Random Urine 12.4 mg/dl (0.6-1.7); Microalbumin/creatinine Ratio 132.1 mg/g
== END ==
LOC: HWLAB 09:10
PROVIDERS: ATTENDING PHYSICIAN Internal Medicine Cardiovascular Disease; FAMILY PHYSICIAN Family Medicine
DX: R41.89 Other symptoms and signs involving cognitive functions and awareness (principal); E78.2 Mixed hyperlipidemia; I10 Essential (primary) hypertension; E78.5 Hyperlipidemia, unspecified
CPT/HCPCS: 36415; 80053; 80061; 81003; 81015; 82043; 82570; 83036; 83735; 84443; 85025

== ENCOUNTER 2024-11-02 12:45 | Emergency (ER) | payer MEDICARE, SELFPAY ==
[2024-11-02 12:52] VITALS: BP 116/65
[2024-11-02 13:44] VITALS: BP 109/68
--- NOTE | 2024-11-02 13:52 | ED.GENMED ---
History of Present Illness
General
Chief Complaint: Head Injury
Time Seen by Provider: 11/02/24 13:10
History of Present Illness
History of Present Illness:
84-year-old female presents the emergency department after a mechanical fall. She tripped over a parking stop and landed on the ground face first. was present and there was no loss of consciousness. Mild abrasion to the right forehead as
well as an abrasion to the nasal bridge. She is not on blood thinners. She feels well and denies complaints
Past History
Past History
ED Past Medical History: HTN, Hypercholesterolemia, Other (TIA) and Other ('80% left carotid blockage' per )
Social History
Tobacco: Former smoker
Personal:
Living: with family
Review of Systems
Review of Systems
Allergies reviewed?: Yes
All Other Systems: ROS reviewed and negative except as documented in HPI and ROS
Phy Exam
Physical Exam
Physical Exam:
GEN: Well appearing, NAD, WDWN
HEENT: Mild abrasion to the right forehead, superficial laceration to the midline nasal bridge, no ecchymosis, oral mucosa moist, no scleral icterus, no nasal congestion
Cardiac: Regular rate
Lung: No respiratory distress, no tachypnea
MSK: No gross deformity or injuries
Skin: Good color, no pallor or jaundice, no rashes
Neuro: AO x3; CN II-XII grossly intact. BUE strength 5/5 in all caldera, sensation intact and symmetric. BLE strength 5/5 in all caldera, sensation intact and symmetric
Psych: Calm, cooperative
Course
Orders/Labs/Results
Orders:
Orders
11/02/24 13:16
CT Head W/o Iv Contrast Urgent
Comment:
Reason For Exam: fall
Vital Signs
Initial and Last Documented VS:
Initial Vital Signs
Temp Pulse Resp BP Pulse Ox
98.2 F 75 16 116/65 98
03/21/25 12:52 11/02/24 12:52 11/02/24 12:52 11/02/24 12:52 11/02/24 12:52
Last Documented Vital Signs
Temp Pulse Resp BP Pulse Ox
98.2 F 71 16 109/68 100
11/02/24 12:52 11/02/24 13:44 11/02/24 13:44 11/02/24 13:44 11/02/24 13:44
MDM/Problems Addressed
MDM/Problems Addressed:
Imaging unremarkable, neurologically at baseline. Wounds will not require primary closure
*Critical Care Note
Total Time (30-74mins, 75-104mins- exclusive of procedures): Not Applicable
ED Attending Note
-
Portions of this chart may have been created with voice recognition software.� Occasional wrong word or��sound alike� substitutions may have occurred due to the inherent limitations of voice recognition software.
Discharge Plan
Departure
Patient Disposition: Home (Routine Discharge)
Date of Disposition: 11/02/24
Time of Disposition: 13:53
Patient with high blood pressure during this ER visit?: No
Discharge Problem:
Fall, Laceration of nose
Instructions: Minor Head Injury (DC)
Prescriptions:
No Action
atorvastatin 40 MG tablet
40 mg PO HS
aspirin 81 MG tablet,delayed release (DR/EC)
81 mg PO HS
ezetimibe 10 MG tablet
10 mg PO HS
fesoterodine [Toviaz] 4 MG tablet extended release 24 hr
4 mg PO DAILY
metoprolol succinate 100 MG tablet extended release 24 hr
100 mg PO DAILY
fenofibrate nanocrystallized 145 MG tablet
145 mg PO DAILY
multivitamin with folic acid [Tab-A-Noe] 1 TABLET tablet
1 tab PO DAILY
PreserVision AREDS-2 1 EACH capsule
1 ea PO QPM
memantine 10 mg Tablet
10 mg PO BID
Systane (PF) 0.4-0.3 % Dropperette
1 drp BOTH EYES BIDPRN PRN (Reason: DRY EYES)
lacosamide [Vimpat] 150 mg Tablet
150 mg PO BID
coQ10 (ubiquinol) 100 mg Capsule
100 mg PO QPM
amoxicillin-pot clavulanate 875-125 mg tablet
1 tab PO BID Qty: 10 0RF
Interventions
Interventions:
*Risk Screen - Suicide Last Done: 11/02/24 12:52
*General Assessment Last Done: 11/02/24 13:23
*Neglect/Abuse Screening Last Done: 11/02/24 12:52
*ED- Fall Risk Assessment Last Done: 11/02/24 13:23
*Nursing Disposition Last Done: 11/02/24 13:58
ED- Neurological Assessment Last Done: 11/02/24 13:23
ED-Skin Assessment Last Done: 11/02/24 13:23
Discharge Date and Time
Discharge Date/Time: 11/02/24 13:58
Print Language: SLOVAK
== END 2024-11-02 13:58 | disposition home or self-care (01) ==
LOC: EMR 12:45
PROVIDERS: EMERGENCY PHYSICIAN Student in an Organized Health Care Education/Training Program; FAMILY PHYSICIAN Family Medicine
DX: S01.21XA Laceration without foreign body of nose, initial encounter (principal); W01.0XXA Fall on same level from slipping, tripping and stumbling without subsequent striking against object, initial encounter; I10 Essential (primary) hypertension; E78.00 Pure hypercholesterolemia, unspecified; Z86.73 Personal history of transient ischemic attack (TIA), and cerebral infarction without residual deficits; Z87.891 Personal history of nicotine dependence
CPT/HCPCS: 99284; 70450

== ENCOUNTER → 2024-11-13 10:40 | Outpatient (REF) | payer MEDICARE, SELFPAY | LOC: HWRAD 10:40 | PROVIDERS: ATTENDING PHYSICIAN Family Medicine | DX: Z87.01 Personal history of pneumonia (recurrent) (principal); Z09 Encounter for follow-up examination after completed treatment for conditions other than malignant neoplasm | CPT/HCPCS: 71046 ==

== ENCOUNTER → 2024-11-26 09:32 | Outpatient (REF) | payer MEDICARE, SELFPAY ==
[2024-11-26 11:38] LABS: % Basophils 0.8 % (0-2); % Immature Granulocytes 0.3 % (0-0.5); % Lymphocytes 16.6 % (20.5-51.1); % Monocytes 10.4 % (1.7-9.3); % Neutrophils 68.9 % (42.2-75.2); Absolute Basophils 0.1 10^3/uL (0-0.2); Absolute Eosinophils 0.2 10^3/uL (0-0.7); Absolute Monocytes 0.7 10^3/uL (0.1-0.6); Absolute Neutrophils 4.3 10^3/uL (1.4-6.5); Hematocrit 39.8 % (37.0-47.0); Hemoglobin 13.1 g/dL (12.0-16.0); Mean Corp Hgb Conc. 32.9 g/dL (33.0-37.0); Mean Corpuscular Hgb 30.5 pg (27.0-31.0); Mean Corpuscular Volume 92.8 fL (81.0-99.0); Mean Platelet Volume 10.8 fL (7.4-10.4); Nucleated Red Blood Cells % 0 %; Platelet Count 253 10^3/uL (130-400); Red Blood Cell Count 4.29 10^6/uL (4.20-5.40); Red Cell Dist. Width 14.7 % (11.5-14.5); White Blood Cell Count 6.3 10^3/uL (4.8-10.8)
== END ==
LOC: HWLAB 09:32
PROVIDERS: ATTENDING PHYSICIAN Family Medicine
DX: R79.89 Other specified abnormal findings of blood chemistry (principal)
CPT/HCPCS: 36415; 85025

== ENCOUNTER → 2025-01-14 09:01 | Outpatient (REF) | payer MEDICARE, SELFPAY ==
[2025-01-14 13:55] LABS: Microalbumin, Random Urine 2.8 mg/dl (0.6-1.7)
== END ==
LOC: HWLAB 09:01
PROVIDERS: ATTENDING PHYSICIAN Family Medicine
DX: R80.9 Proteinuria, unspecified (principal)
CPT/HCPCS: 82043; 82570

== ENCOUNTER → 2025-01-21 10:54 | Outpatient (REF) | payer MEDICARE, SELFPAY | LOC: RAD 10:54 | PROVIDERS: ATTENDING PHYSICIAN Surgery Vascular Surgery | DX: I65.23 Occlusion and stenosis of bilateral carotid arteries (principal) | CPT/HCPCS: 93880 ==

== ENCOUNTER → 2025-03-08 10:27 | Outpatient (REF) | payer MEDICARE, SELFPAY | LOC: HWRAD 10:27 | PROVIDERS: ATTENDING PHYSICIAN Family Medicine | DX: Z13.820 Encounter for screening for osteoporosis (principal); N95.1 Menopausal and female climacteric states | CPT/HCPCS: 77080 ==

== ENCOUNTER → 2025-07-04 08:50 | Outpatient (REF) | payer MEDICARE, SELFPAY ==
[2025-07-04 10:57] LABS: Blood Urea Nitrogen 29 mg/dl (7-17); Calcium 9.5 mg/dl (8.4-10.2); Carbon Dioxide 32 mmol/L (22-30); Chloride 101 mmol/L (98-107); Glucose 88 mg/dl (70-99); HDL Cholesterol 39 mg/dl; LDL Cholesterol, Calculated 47 mg/dl; Potassium 4.8 mmol/L (3.5-5.1); Sodium 136 mmol/L (135-145); Very Low Density Lipoprotein 12 mg/dl (0-30); eGFR > 60.00
[2025-07-04 10:58] LABS: Microalb - Urine Creatinine 58.800 mg/dl
[2025-07-04 11:02] LABS: Glycohemoglobin (HgbA1c) 5.2 % (4.0-5.9)
[2025-07-04 12:34] LABS: Microalbumin, Random Urine 3.2 mg/dl (0.6-1.7)
== END ==
LOC: HWLAB 08:50
PROVIDERS: ATTENDING PHYSICIAN Family Medicine
DX: E78.2 Mixed hyperlipidemia (principal); R73.03 Prediabetes; R80.9 Proteinuria, unspecified
CPT/HCPCS: 36415; 80048; 80061; 82043; 82570; 83036

== ENCOUNTER → 2025-07-25 08:58 | Outpatient (REF) | payer MEDICARE, SELFPAY ==
[2025-07-25 11:19] LABS: Microalbumin, Random Urine 12.1 mg/dl (0.6-1.7)
== END ==
LOC: REG 08:58
PROVIDERS: ATTENDING PHYSICIAN Family Medicine
DX: R80.9 Proteinuria, unspecified (principal)
CPT/HCPCS: 82043; 82570

== ENCOUNTER → 2025-07-30 09:48 | Outpatient (REF) | payer MEDICARE, SELFPAY ==
[2025-07-30 11:14] LABS: Microalb - Urine Creatinine 97.500 mg/dl
[2025-07-30 11:16] LABS: Blood Urea Nitrogen 25 mg/dl (7-17); Calcium 9.5 mg/dl (8.4-10.2); Carbon Dioxide 30 mmol/L (22-30); Chloride 104 mmol/L (98-107); Glucose 84 mg/dl (70-99); HDL Cholesterol 38 mg/dl; LDL Cholesterol, Calculated 45 mg/dl; Potassium 4.5 mmol/L (3.5-5.1); Sodium 139 mmol/L (135-145); Very Low Density Lipoprotein 20 mg/dl (0-30); eGFR > 60.00
[2025-07-30 11:27] LABS: Microalbumin, Random Urine 21.5 mg/dl (0.6-1.7)
== END ==
LOC: REG 09:48
PROVIDERS: ATTENDING PHYSICIAN Family Medicine
DX: R80.9 Proteinuria, unspecified (principal); E78.2 Mixed hyperlipidemia; R73.03 Prediabetes
CPT/HCPCS: 36415; 80048; 80061; 82043; 82570